=== PATIENT | female | born 1985 | race Caucasian/White ===

== ENCOUNTER 2021-07-20 13:08 | Emergency (ER) | payer BC ==
[~2021-07-20] VITALS: Ht 157.5 cm; Wt 127.0 kg
== END 2021-07-20 16:12 | disposition home or self-care (01) ==
LOC: ER1 13:08
DX: U07.1 COVID-19 (principal); Z23 Encounter for immunization; I10 Essential (primary) hypertension; Z91.040 Latex allergy status
CPT/HCPCS: 99283; M0243